=== PATIENT | female | born 1990 | race Caucasian/White ===

== ENCOUNTER 2025-06-13 08:59 | Emergency (ER) | payer MEDICAID ==
[~2025-06-13] VITALS: Ht 170.2 cm; Wt 66.0 kg
[2025-06-13 09:10] VITALS: O2SAT 100
[2025-06-13 09:44] VITALS: BP 106/76; PULSE 71; RESP 16; TEMP 37.2; O2SAT 100
== END 2025-06-13 10:15 | disposition home or self-care (01) ==
LOC: ER 08:59
DX: S01.01XD Laceration without foreign body of scalp, subsequent encounter (principal); Z48.02 Encounter for removal of sutures; X58.XXXD Exposure to other specified factors, subsequent encounter
CPT/HCPCS: 99282

== ENCOUNTER 2025-06-21 08:47 | Emergency (ER) | payer SELFPAY ==
[~2025-06-21] VITALS: Ht 162.6 cm; Wt 63.0 kg
[2025-06-21 08:51] VITALS: O2SAT 100
[2025-06-21] MEDS: ONDANSETRON 4MG ODT PO STA (09:08)
[2025-06-21 09:13] VITALS: BP 130/77; PULSE 83; RESP 14; TEMP 36.8; O2SAT 100
== END 2025-06-21 09:14 | disposition home or self-care (01) ==
LOC: ER 08:47
DX: S01.01XD Laceration without foreign body of scalp, subsequent encounter (principal); X58.XXXD Exposure to other specified factors, subsequent encounter
CPT/HCPCS: 99283; Q0162